=== PATIENT | male | born 1960 | race Caucasian/White ===

== ENCOUNTER → 2016-09-08 | Day surgery (SDC) | payer BC, OTHER ==
[~2016-09-08] MED LIST: ACETAMINOPHEN 1000 MG/100 ML VIAL IV ONE; ACETAMINOPHEN/HYDROcodone 325 MG/5 MG TAB ONE; BUPIVACAINE/EPINEPHRINE 0.5% PF 30 ML VIAL ONE; KETOROLAC TROMETHAMINE 30 MG/ML (IVP) VIAL IV PUSH ONE; LACTATED RINGER'S 1000 ML INJ 1,000 ML ONE; MEPERIDINE HCL 50 MG/ML VIAL ONE; MIDAZOLAM HCL 2 MG/2 ML VIAL ONE; ONDANSETRON HCL 4 MG/2 ML VIAL IV PUSH ONE; PROPOFOL 200 MG/20 ML AMP IV ONE; Z.0.NO CURRENT MEDS; ceFAZolin INJ 1,000 MG VIAL ONE
--- NOTE | 2016-09-08 19:02 | TN ---
cc: GEOVANNA ALFORD M.D. DATE OF SURGERY 09/08/2016 PREOPERATIVE DIAGNOSIS Bilateral inguinal hernia right bigger than left. POSTOPERATIVE DIAGNOSIS Bilateral inguinal hernia right bigger than left. PROCEDURE Laparoscopic bilateral inguinal hernia with mesh. Right inguinal hernia direct, left indirect. ANESTHESIA General. SURGEON Dr. Alford. INDICATION This is a pleasant 55-year gentleman who was found to have bilateral inguinal hernias. Plans were made for above. PROCEDURE The patient taken to the operating room and placed in the supine position. After anesthesia, his abdomen was prepped with Betadine. We make an incision just below the umbilicus, dissect down to the fascia. The fascia is incised, get into the preperitoneal space with the balloon dissector. It was pumped up with the balloon dissector under videoscopic surveillance. The balloon dissector is then removed and the balloon trocar was introduced and the preperitoneal space is insufflated to 11 mmHg. Camera was introduced. Two other working ports placed 5 mm just above the pubic tubercle and 5 mm in midline. He does have a rent in the peritoneum from the left just lateral to the inferior epigastric vessel up to the umbilicus. We are able to tease the peritoneum off the anterior abdominal wall so this rent overlaps. We then were able to get in the left inguinal region. Indirect sac is completely reduced from the cord structures. Posterior window is obtained. We then place a piece of polypropylene mesh 3 x 6 cut with a slit to accommodate the cord and secure it to the pubic tubercle, Cristopher's ligament and the tails were fashioned and secured to themselves to the anterior abdominal wall and out laterally avoiding the cutaneous nerves. We then direct our attention the right side. Unfortunately the peritoneum did not completely dissect away from the anterior abdominal wall but we were able to carefully tease this away well enough to where we could visualize the defect and he had a significant size direct defect which easily reduced. Cord structures posterior window is then made. We then place a piece of polypropylene mesh cut 3 x 6 cm with a slit to accommodate the cord structures. This is then placed secured to the pubic tubercle, Cristopher's ligament with the tacking device out laterally with a tacking device and then tails were then secured to themselves to the anterior abdominal wall avoiding epigastric vessels. We then check our dissection site and we had excellent hemostasis. To reapproximate the peritoneal rent we desufflated the abdominal pressure down to about 6. We then take the tacking device and are able to tack the peritoneum to the anterior abdominal wall obliterating the defect. Because of the possible exposure of the mesh, I did place some Interceed on the on the mesh to the left side and along where the rent had been repaired. We then slowly removed the CO2 and I see that the peritoneum is approximated well. The trocar is then removed and the fascial layer at the umbilicus is reapproximated with 0 Vicryl and skin at all three sites are closed with a 4-0 Vicryl. Steri-Strips applied. Sterile bandage applied. The patient tolerated the procedure well and had no immediate postoperative complications. Geovanna Alford MD [id number] /4:40 PM /6:47 PM
== END | disposition home or self-care (01) ==
LOC: ESDC 08:39
PROVIDERS: ATTEND Surgery
DX: K40.20 Bilateral inguinal hernia, without obstruction or gangrene, not specified as recurrent (principal)
CPT/HCPCS: 00840; 49650; C1727; C1765; C1781; J0131; J0690; J1885; J2175; J2250; J2405; J3010; J7120